=== PATIENT | female | born 2000 | race African-American/Black ===

== ENCOUNTER 2021-10-06 09:29 | Emergency (ER) | payer OTHER ==
[~2021-10-06] VITALS: Ht 167.6 cm; Wt 60.2 kg
[2021-10-06 09:30] VITALS: BP 118/66
[2021-10-06] MEDS ORDERED: VENTAER INH (09:38)
[2021-10-06 10:29] LABS: RSV AMPLIFICATION NEGATIVE (NEGATIVE)
[2021-10-06 11:57] LABS: BASO % 0.8 % (0.0-1.0); EOS # 1.4 10^3/uL (0.0-0.5); HEMATOCRIT 38.7 % (36.0-47.0); HEMOGLOBIN 11.8 g/dl (12.0-15.5); LYMPH # 1.4 10^3/uL (1.5-5.0); LYMPH % 27.1 % (24.0-44.0); MEAN CORPUSCULAR HEMOGLOBIN 24.2 pg (27.0-33.0); MEAN CORPUSCULAR HGB CONC 30.5 g/dl (32.0-36.5); MEAN CORPUSCULAR VOLUME 79.5 fl (80.0-96.0); MONO # 0.4 10^3/uL (0.0-0.8); MONO % 7.2 % (2.0-8.0); NEUTROPHILS % 37.9 % (36.0-66.0); PLATELET COUNT, AUTOMATED 170 10^3/uL (150-450); RED BLOOD COUNT 4.87 10^6/uL (4.00-5.40); WHITE BLOOD COUNT 5.3 10^3/uL (4.0-10.0)
[2021-10-06 12:37] LABS: EOS % 26.8 % (0.0-3.0)
[2021-10-06] MEDS ORDERED: PRED20TA PO (13:16)
[2021-10-06] MEDS ORDERED: AMOX500T PO (13:16)
[2021-10-06] MEDS ORDERED: PROAAER10 INH (13:17)
== END 2021-10-06 13:20 | disposition home or self-care (01) ==
LOC: M ED 09:29
DX: J20.9 Acute bronchitis, unspecified (principal); J45.909 Unspecified asthma, uncomplicated; Z88.5 Allergy status to narcotic agent; Z88.8 Allergy status to other drugs, medicaments and biological substances

== ENCOUNTER 2022-01-06 14:39 | Emergency (ER) | payer OTHER ==
[~2022-01-06] VITALS: Ht 167.6 cm; Wt 58.2 kg
[~2022-01-06 14:39] MED LIST: AMOX500T PO; PRED20TA PO; PROAAER10 INH; VENTAER INH
[2022-01-06 15:40] LABS: BASO % 0.6 % (0.0-1.0); EOS # 0.2 10^3/uL (0.0-0.5); HEMOGLOBIN 11.6 g/dl (12.0-15.5); LYMPH # 1.8 10^3/uL (1.5-5.0); LYMPH % 37.9 % (24.0-44.0); MEAN CORPUSCULAR HEMOGLOBIN 24.9 pg (27.0-33.0); MEAN CORPUSCULAR HGB CONC 31.4 g/dl (32.0-36.5); MEAN CORPUSCULAR VOLUME 79.4 fl (80.0-96.0); MONO # 0.3 10^3/uL (0.0-0.8); MONO % 6.8 % (2.0-8.0); NEUTROPHILS # 2.4 10^3/uL (1.5-8.5); NEUTROPHILS % 50.5 % (36.0-66.0); PLATELET COUNT, AUTOMATED 168 10^3/uL (150-450); RED BLOOD COUNT 4.66 10^6/uL (4.00-5.40); WHITE BLOOD COUNT 4.7 10^3/uL (4.0-10.0)
[2022-01-06 16:10] LABS: BLOOD UREA NITROGEN 15 MG/DL (7-18); CALCIUM LEVEL 9.2 MG/DL (8.5-10.1); CARBON DIOXIDE LEVEL 29 MEQ/L (21-32); CHLORIDE LEVEL 109 MEQ/L (98-107); CREATININE FOR GFR 0.86 MG/DL (0.55-1.30); GLOMERULAR FILTRATION RATE > 60.0 (>60); GLUCOSE, FASTING 81 MG/DL (70-100); HCG, SERUM QUANTITATIVE < 1.0 MIU/ML; POTASSIUM SERUM 4.4 MEQ/L (3.5-5.1); SODIUM LEVEL 140 MEQ/L (136-145)
[2022-01-06 21:39] VITALS: BP 122/63
== END 2022-01-06 21:40 | disposition home or self-care (01) ==
LOC: M ED 14:39
DX: N93.8 Other specified abnormal uterine and vaginal bleeding (principal); R10.2 Pelvic and perineal pain; T83.32XA Displacement of intrauterine contraceptive device, initial encounter; Y92.89 Other specified places as the place of occurrence of the external cause; J45.909 Unspecified asthma, uncomplicated; Z88.5 Allergy status to narcotic agent